=== PATIENT | female | born 1975 | race Caucasian/White ===

== ENCOUNTER 2020-08-28 09:53 | Outpatient (CLI) | payer OTHER, SELFPAY ==
--- NOTE | 2020-08-28 10:03 | MM_ITS ---
WS: [id number] BILATERAL SCREENING DIGITAL MAMMOGRAM WITH CAD HISTORY: SCREENING COMPARISON: 05/18/2018, 05/10/2017 and 04/24/2016 Bilateral CC and MLO views submitted. Computer aided detection analyzed. Breast composition: The breasts are heterogeneously dense, which may obscure small masses. No suspici ous masses, microcalcifications or architectural distortion. Bilateral breast asymmetries are stable. Most significant when compared to 04/24/2016. Asymmetries have remained stable. MM/[place] [id number] IMPRESSION: BI-RADS: 2-Benign FOLLOW UP: 1 Year Follow-up
== END 2020-08-28 09:54 | disposition home or self-care (01) ==
PROVIDERS: Family Provider Internal Medicine; PCP Internal Medicine; Visit Provider Obstetrics & Gynecology
DX: Z12.31 Encounter for screening mammogram for malignant neoplasm of breast (principal)
CPT/HCPCS: 77067

== ENCOUNTER → 2021-07-11 13:31 | Outpatient (BNVA) | payer OTHER, SELFPAY | PROVIDERS: Family Provider Internal Medicine; PCP Internal Medicine; Visit Provider Family Medicine | DX: Z20.828 Contact with and (suspected) exposure to other viral communicable diseases (principal) | CPT/HCPCS: 87635 ==

== ENCOUNTER → 2022-04-28 12:07 | Outpatient (BNVA) | payer OTHER, SELFPAY | PROVIDERS: PCP Internal Medicine; Visit Provider Family Medicine | DX: G25.81 Restless legs syndrome (principal); F41.9 Anxiety disorder, unspecified; K21.9 Gastro-esophageal reflux disease without esophagitis; A60.09 Herpesviral infection of other urogenital tract; Z86.2 Personal history of diseases of the blood and blood-forming organs and certain disorders involving the immune mechanism | CPT/HCPCS: 80053; 80061; 82607; 82728; 83540; 83550; 84439; 84443; 85025 ==

== ENCOUNTER → 2022-07-07 10:00 | Outpatient (BNVA) | payer OTHER, SELFPAY | PROVIDERS: PCP Family Medicine; Visit Provider Obstetrics & Gynecology | DX: Z12.4 Encounter for screening for malignant neoplasm of cervix (principal) | CPT/HCPCS: 87624 ==

== ENCOUNTER 2022-07-14 08:25 | Outpatient (CLI) | payer OTHER, SELFPAY ==
--- NOTE | 2022-07-14 08:33 | MM_ITS ---
WS: [id number] BILATERAL SCREENING DIGITAL TOMOSYNTHESIS MAMMOGRAM WITH CAD HISTORY: Screening. COMPARISON: 08/28/2020, 05/18/2018 and 05/10/2017 Bilateral CC and MLO views with tomosynthesis and synthetic mammography submitted. Computer aided det ection analyzed. Breast composition: There are scattered areas of fibroglandular density. No suspicious masses, microc alcifications or architectural distortion. Scattered asymmetries or involuting as expected. No persis tent or increasing asymmetry. MM/[place] [id number] IMPRESSION: BI-RADS: 2-Benign FOLLOW UP: 1 Year Follow-up
== END 2022-07-14 08:26 | disposition home or self-care (01) ==
PROVIDERS: PCP Family Medicine; Visit Provider Obstetrics & Gynecology
DX: Z12.31 Encounter for screening mammogram for malignant neoplasm of breast (principal)
CPT/HCPCS: 77063; 77067

== ENCOUNTER → 2023-06-10 12:46 | Outpatient (BNVA) | payer OTHER, SELFPAY | PROVIDERS: PCP Family Medicine; Visit Provider Nurse Practitioner Family | DX: R05.8 Other specified cough (principal); J02.9 Acute pharyngitis, unspecified; J06.9 Acute upper respiratory infection, unspecified; U07.1 COVID-19 | CPT/HCPCS: 87400; 87426; 87880 ==

== ENCOUNTER 2023-07-19 08:09 | Outpatient (CLI) | payer OTHER, SELFPAY ==
--- NOTE | 2023-07-19 08:15 | MM_ITS ---
WS: [id number] BILATERAL SCREENING DIGITAL TOMOSYNTHESIS MAMMOGRAM WITH CAD HISTORY: Breast CA screening COMPARISON: 07/14/2022, 08/28/2020 and 05/18/2018 Bilateral CC and MLO views with tomosynthesis and synthetic mammography submitted. Computer aided det ection analyzed. Breast composition: There are scattered areas of fibroglandular density. No suspicious masses, microc alcifications or architectural distortion. Mild scattered asymmetries. No mass or interval change. IMPRESSION: MM/[place] [id number] BI-RADS: 2-Benign FOLLOW UP: 1 Year Follow-up
== END 2023-07-19 08:10 | disposition home or self-care (01) ==
LOC: RAD 08:09
PROVIDERS: PCP Family Medicine; Visit Provider Family Medicine
DX: Z12.31 Encounter for screening mammogram for malignant neoplasm of breast (principal); R92.323 Mammographic fibroglandular density, bilateral breasts; N64.89 Other specified disorders of breast
CPT/HCPCS: 77063; 77067

== ENCOUNTER → 2023-07-30 09:22 | Outpatient (BNVA) | payer OTHER, SELFPAY | PROVIDERS: PCP Family Medicine; Visit Provider Obstetrics & Gynecology | DX: N91.5 Oligomenorrhea, unspecified (principal); Z30.9 Encounter for contraceptive management, unspecified; N93.9 Abnormal uterine and vaginal bleeding, unspecified | CPT/HCPCS: 83001 ==

== ENCOUNTER 2023-10-25 08:08 | Outpatient (CLI) | payer OTHER, SELFPAY ==
[2023-10-25 08:55] LABS: Chol HDL Ratio 5.51 mg/dL (0.0-4.40); Cholesterol 237 mg/dL (0-200); Glucose 102 mg/dL (65-115); HDL Cholesterol 43 mg/dL (60-100); LDL Cholesterol Calculated 168 mg/dL (50-129); LDL HDL Ratio 3.91 RATIO (0.00-3.22); Triglycerides 128 mg/dL (0-150)
[2023-10-25 09:19] LABS: Estmated Average Glucose 100; Hemoglobin A1C 5.1 % (4.0-6.0)
== END 2023-10-25 08:09 | disposition home or self-care (01) ==
LOC: LAB 08:09
PROVIDERS: PCP Family Medicine; Visit Provider Family Medicine
DX: Z01.89 Encounter for other specified special examinations (principal)
CPT/HCPCS: 36415; 80061; 82947; 83036

== ENCOUNTER 2024-04-13 06:46 | Day surgery (SDC) | payer OTHER, SELFPAY ==
--- NOTE | 2024-04-13 06:02 | P.HPUD_ITS ---
Surgery/Procedure H&P Update DATE OF PROCEDURE: April 13, 2024 DATE H&P PERFORMED: 03/21/24 H&P UPDATE INFORMATION: I have reviewed H&P completed within last 30 days, I have examined patient prior to procedure, No changes to prior documentation and [place] is in [facility] [place] date indicated PLANNED PROCEDURE: Operation Date: 04/13/24 08:20 Proposed Procedures p Colonoscopy 33787, G0121, Z12.11(Not Applicable) - Glen Sepulveda MD
--- NOTE | 2024-04-13 06:02 | W.PM.OPSUD ---
Surgery/Procedure H&P Update DATE OF PROCEDURE: April 13, 2024 DATE H&P PERFORMED: 03/21/24 H&P UPDATE INFORMATION: I have reviewed H&P completed within last 30 days, I have examined patient prior to procedure, No changes to prior documentation and H&P is in [facility] [place] EMR on date indicated PLANNED PROCEDURE: Operation Date: 04/13/24 08:20 Proposed Procedures p Colonoscopy 39755, G0121, Z12.11(Not Applicable) - Glen Sepulveda MD
[2024-04-13 06:56] VITALS: BP 120/77; PULSE 104; RESP 16; O2SAT 97; BMI 26.4
[2024-04-13 07:03] LABS: OR HCG Qualitative Urine Negative (Negative)
[2024-04-13] MEDS: sodium chloride 0.9% 1,000 ML 30 ML IV (07:10)
--- NOTE | 2024-04-13 07:25 | ANES.PREANE2 ---
Pre-Anesthetic Assessment Height/Weight: Height 1.68 m Weight 74.389 kg Pulse Resp BP Pulse Ox O2 Del Method 104 H 16 120/77 97 Room Air 04/13/24 06:56 04/13/24 06:56 04/13/24 06:56 04/13/24 06:56 04/13/24 06:56 Operation Date: 04/13/24 08:20 Proposed Procedures p Colonoscopy 79156, G0121, Z12.11(Not Applicable) - Glen Sepulveda MD Familial anesthetic complications: none Was Beta Myra taken within 24 hours: N/A Was Clonidine taken within 24 hours: N/A Last intake: Intake Last Liquid Date 04/12/24 Last Liquid Time 20:30 Last Solid Date 04/11/24 Last Solid Time 18:00 Social No alcohol and No tobacco Exam alert, oriented x 3, clear to auscultation bilaterally and regular rate & rhythm Airway Mallampati: Class I Dentition: full GI Gastroesophageal Reflux Disease Anesthetic Plan ASA status: 1 Anesthesia: MAC Risk of > 500 ml blood loss (7ml/kg in children): No Medications/Allergies Home Medications Medication Instructions Recorded Confirmed Last Taken Type medroxyprogesterone 150 mg/mL 150 mg IM ONCE Contraception, 07/30/23 04/13/24 04/12/24 Rx intramuscular syringe abnormal uterine bleeding, (Depo-Provera) endometriosis #1 mL prazosin 1 mg capsule 3 mg (3 x 1 mg) PO DAILY #180 caps 03/09/24 04/13/24 04/12/24 Rx escitalopram oxalate 20 mg tablet 20 mg PO DAILY #90 tabs 03/16/24 04/13/24 04/12/24 Rx cetirizine 10 mg tablet 10 mg PO DAILY 04/11/24 04/13/24 04/12/24 History multivitamin 1 cap PO DAILY 04/11/24 04/13/24 04/12/24 History omeprazole 40 mg capsule,delayed 40 mg PO DAILY 04/11/24 04/13/24 04/12/24 History release valacyclovir 500 mg tablet 500 mg PO DAILY 04/11/24 04/13/24 04/12/24 History Allergies Allergy/AdvReac Type Severity Reaction Status Date / Time No Known Allergies Allergy Unverified 03/21/24 10:55 Current Medications Generic Name Dose Route Start Last Admin Trade Name Freq PRN Reason Stop Dose Admin Sodium Chloride 1,000 mls @ 30 mls/hr 04/13/24 07:00 04/13/24 07:10 Sodium Chloride 0.9% IV 30 mls/hr .Q24H BAUDILIO Administration PFSH Anesthesia Medical History Nightmare disorder RLS (restless legs syndrome) Well woman exam with routine gynecological exam Anxiety Surgical History (Updated 03/21/24 @ 11:02 by Jennifer Jones) S/P Family History Grandmother Diabetes paternal maternal great grandmother Grandfather Heart disease paternal Hyperlipidemia maternal great grandfather Father Stroke Family/Other Breast cancer maternal great aunt, age onset unknown Mother Dementia Denies family history of Colon cancer Ovarian cancer Clotting disorder Anesthesia complication Bleeding disorder Hypertension Uterine cancer Thyroid disease Social History Smoking and tobacco/nicotine status: never used tobacco/nicotine Alcohol intake: never Substance/Drug Use: never Female Reproductive History Para: 1 Spontaneous abortions: Yes Data Anesthesia Cardiac Studies: No Data to Display
[2024-04-13 08:20] VITALS: BP 106/73; PULSE 70; RESP 16; TEMP 36.2; O2SAT 97
[2024-04-13 08:30] VITALS: BP 107/76; PULSE 62; RESP 18; O2SAT 98
[2024-04-13 08:41] VITALS: BP 116/74; PULSE 69; RESP 18; O2SAT 99
[2024-04-13 08:51] VITALS: BP 118/79; PULSE 68; RESP 18; O2SAT 100
--- NOTE | 2024-04-13 09:34 | ANE.PACU2 ---
Inpatient post-anesthesia follow up: Airway intact: Yes Vital signs: Temperature 97.1 F Pulse Rate 68 Respiratory Rate 18 Blood Pressure 118/79 Pulse Oximetry 100 Oxygen Delivery Me thod Room Air Oxygen Flow Rate Fraction of Inspir ed Oxygen Hydration adequate: Yes Nausea and vomiting: No Pain level: 1 Mental status: Baseline
== END 2024-04-13 09:43 | disposition home or self-care (01) ==
PROVIDERS: Anesthesiology; PCP Family Medicine; Visit Provider Surgery
PROC: 0DJD8ZZ Inspection of Lower Intestinal Tract, Via Natural or Artificial Opening Endoscopic (ICD-10-PCS; CPT 45378; principal; 2024-04-13 08:20)
DX: Z12.11 Encounter for screening for malignant neoplasm of colon (principal); K64.8 Other hemorrhoids; D12.5 Benign neoplasm of sigmoid colon; F41.9 Anxiety disorder, unspecified
CPT/HCPCS: 45380; 81025; 88305; J2704; J7030

== ENCOUNTER 2024-09-13 10:58 | Outpatient (CLI) | payer OTHER, SELFPAY ==
--- NOTE | 2024-09-13 10:40 | MM_ITS ---
WS: [id number] BILATERAL SCREENING DIGITAL TOMOSYNTHESIS MAMMOGRAM WITH CAD HISTORY: Z12.39 - Encounter for other screening for malignant neop... COMPARISON: 07/19/2023, 07/14/2022, 05/10/2017 and 05/18/2018 Bilateral CC and MLO views with tomosynthesis and synthetic mammography submitted. Computer aided detection analyzed. Breast composition: The breasts are heterogeneously dense, which may obscure small masses. No suspicious masses, microcalcifications or architectural distortion. Dense scattered asymmetries greater within the LEFT breast. Asymmetries are stable over multiple prior years. No suspicious grouping of calcifications. MM/MM scr tomosynthesis [id number] IMPRESSION: BI-RADS: 2 - Benign FOLLOW UP: 1 Year Follow-up
== END 2024-09-13 10:59 | disposition home or self-care (01) ==
LOC: RAD 10:58
PROVIDERS: PCP Family Medicine; Visit Provider Obstetrics & Gynecology
DX: Z12.31 Encounter for screening mammogram for malignant neoplasm of breast (principal); R92.333 Mammographic heterogeneous density, bilateral breasts; N64.89 Other specified disorders of breast
CPT/HCPCS: 77063; 77067

== ENCOUNTER → 2024-11-07 09:02 | Outpatient (BNVA) | payer OTHER, SELFPAY | PROVIDERS: PCP Family Medicine; Visit Provider Family Medicine | DX: Z13.6 Encounter for screening for cardiovascular disorders (principal); F41.9 Anxiety disorder, unspecified; F51.5 Nightmare disorder; K21.9 Gastro-esophageal reflux disease without esophagitis; A60.09 Herpesviral infection of other urogenital tract; M79.89 Other specified soft tissue disorders | CPT/HCPCS: 80053; 80061; 84439; 84443; 85025 ==

== ENCOUNTER 2024-11-17 12:31 | Outpatient (CLI) | payer OTHER, SELFPAY ==
--- NOTE | 2024-11-17 12:45 | US_ITS ---
WS: [id number] INDICATION: LEFT thumb mass TECHNIQUE: Ultrasound soft tissue LEFT thumb FINDINGS: Ultrasound soft tissue area of concern LEFT thumb. In the area of concern, there is an ovoid cystic structure with through- transmission and some internal debris. This measures approximately 1.1 x 0.8 x 0.5 cm. This most likely represents a ganglion cyst in this location. No definite communication to the joint visualized. US/US soft tissue/extremity [id number] IMPRESSION: Cystic lesion in the area of concern with some internal debris most likely represents a ganglion cyst.
== END 2024-11-17 12:32 | disposition home or self-care (01) ==
PROVIDERS: PCP Family Medicine; Visit Provider Family Medicine
DX: M79.89 Other specified soft tissue disorders (principal)
CPT/HCPCS: 76882

== ENCOUNTER → 2025-05-08 09:09 | Outpatient (BNVA) | payer OTHER, SELFPAY | PROVIDERS: PCP Family Medicine; Visit Provider Family Medicine | DX: E78.5 Hyperlipidemia, unspecified (principal); E03.8 Other specified hypothyroidism | CPT/HCPCS: 80061; 84439; 84443 ==